=== PATIENT | male | born 1970 | race Caucasian/White ===

== ENCOUNTER → 2021-12-09 | Outpatient (CLI) | payer OTHER ==
[~2021-12-09] MED LIST: BACTRIM; BLOOD PRESSURE MC; HYDROCHLOROTHIA25 M2 PO; PERCOCET 5-3251 EACH PO; RIFAMPIN 300 M300 MG NG; VERAPAMIL HCL 880 M1 PO
== END ==
LOC: M.LAB 07:08
PROVIDERS: ATTEND Internal Medicine Gastroenterology
DX: Z01.812 Encounter for preprocedural laboratory examination (principal); Z20.822 Contact with and (suspected) exposure to COVID-19